=== PATIENT | male | born 1965 | race Caucasian/White ===

== ENCOUNTER → 2016-12-13 | Outpatient (CLI) | payer SELFPAY ==
[2016-12-13 14:12] LABS: CREATININE 1.2 mg/dL (0.6-1.3)
== END | disposition disaster alternative care site (69) ==
LOC: GLAB 13:18
PROVIDERS: Otolaryngology
DX: J38.00 Paralysis of vocal cords and larynx, unspecified (principal); R91.1 Solitary pulmonary nodule
CPT/HCPCS: Q9967